=== PATIENT | female | born 2000 | race Caucasian/White ===

== ENCOUNTER 2020-11-17 09:44 | Day surgery (SDC) | payer OTHER, SELFPAY ==
[2020-11-17] VITALS (8 sets, daily range): BP systolic 112–138; BP diastolic 73–90; PULSE 64–115; RESP 16–18; TEMP 35.8–37.3; O2SAT 97–115; BMI 23.0
--- NOTE | ~2020-11-17 | US_ITS ---
EXAMINATION: US RETROPERITONEAL COMPLETE (RENAL) CLINICAL INFORMATION: Flank pain. Evaluate for stone.. COMPARISON: None TECHNIQUE: Real-time imaging of the kidneys and bladder. FINDINGS: RIGHT KIDNEY: 10.5 x 5.3 x 5 cm (SAG x AP x TRV). The kidney is normal in size, contour, and echogenicity. Renal cortical thickness is normal. There is moderate right hydronephrosis. The visualized right proximal ureter is dilated measuring up to 1.3 cm. There is a 6 mm echogenic density in the lower pole probably representing a stone. No renal mass or perinephric collection is seen. LEFT KIDNEY: 11 x 5 x 5 cm (SAG x AP x TRV). The kidney is normal in size, contour, and echogenicity. Renal cortical thickness is normal. There is a 3 mm echogenic density in the lower pole probably representing a stone. No focal parenchymal lesions. No hydronephrosis. BLADDER: Bladder is not optimally distended and not well evaluated. Bladder volume is 9 mL. US/US retroperitoneal comp IMPRESSION: Moderate right hydronephrosis and dilatation of the visualized right proximal ureter. Question 6 mm right lower pole renal stone and smaller 3 mm left lower pole renal stone. Bladder not well evaluated.
--- NOTE | ~2020-11-17 | FL_ITS ---
EXAMINATION: XR FLUOROSCOPY WITH IMAGES CLINICAL INFORMATION: Right urinary tract calculi. COMPARISON: CT abdomen and pelvis 11/17/2020 TECHNIQUE: Fluoroscopy performed by Dr. Abdiaziz Dennis. Fluoroscopy time: 0.4 minutes DAP: 3.4 Gycm2 Images: 1 FINDINGS: There is a left ureteral stent with proximal end overlying the mid renal fossa. FL/FL guidance in OR IMPRESSION: Fluoroscopy for urologic procedure.
--- NOTE | ~2020-11-17 | CT_ITS ---
EXAMINATION: CT ABDOMEN AND PELVIS WITHOUT CONTRAST CLINICAL INFORMATION: Right flank pain. Evaluate for ureteral stone. COMPARISON: Renal and bladder ultrasound from earlier the same day TECHNIQUE: Multidetector volumetric imaging was performed from the superior aspect of the liver through the pubic symphysis. Sagittal and coronal reformatted images were obtained on the technologist's workstation. This CT examination was performed using dose optimization techniques as appropriate, variously including the following: *Automated exposure control *Adjustment of mA and/or kV according to patient size (this includes techniques or standardized protocols for targeted exams where dose is matched to indication/reason for exam; i.e. extremities or head) *Use of iterative reconstruction technique DLP: 385 mGy-cm FINDINGS: LUNG BASES: There is a 2 mm peripheral or subpleural left lower lobe nodule. The lung bases are otherwise clear.. LIVER, GALLBLADDER, AND BILIARY TREE: The liver is normal in size, shape, and attenuation. No focal hepatic lesion or biliary ductal dilatation is present. The gallbladder is unremarkable with no evidence of radiopaque gallstones, gallbladder wall thickening, or obvious pericholecystic inflammatory changes. PANCREAS: Unremarkable. SPLEEN: Unremarkable. ADRENAL GLANDS: Unremarkable. KIDNEYS AND URETERS: There is right moderate hydronephrosis and right ureteral dilatation. There are 2 adjacent right distal ureteral stones at the UVJ region measuring approximately 4 x 6 mm. There may be a small stone in the lower pole of the right kidney measuring 2 x 4 mm. There is a 2 x 3 cm peripelvic cyst in the lower pole of the left kidney. There is a no definite left renal stone seen. There is no left hydronephrosis BLADDER: Unremarkable. GASTROINTESTINAL TRACT: There is question of mild bowel wall thickening of the distal right colon/hepatic flexure, transverse colon and left colon versus changes due to underdistention. Small and large bowel are otherwise unremarkable. The appendix is unremarkable. ABDOMINAL WALL: No significant hernia is appreciated. LYMPH NODES: Normal. VASCULAR: Unremarkable. PELVIC VISCERA: There is a probable 2 x 3 cm right ovarian cyst. The uterus and adnexa are otherwise unremarkable. There is a small amount of fluid in the pelvis. OSSEOUS STRUCTURES: Unremarkable. CT/CT abdomen pelvis wo con IMPRESSION: Moderate right hydronephrosis and ureteral dilatation from 2 adjacent approximately 4 x 6 mm right UVJ stones. Probable small right lower pole renal stone. Left renal peripelvic cyst. Wall thickening of the distal right colon/hepatic flexure, transverse colon and left colon. It is uncertain whether this is artifactual due to underdistention or could represent mild colitis. Clinical correlation recommended.
--- NOTE | 2020-11-17 09:40 | ED_ITS ---
HPI - Abdominal Pain General Chief Complaint: Back Pain/Injury Stated Complaint: back & abd pain Time Seen by Provider: 11/17/20 09:36 Source: patient Mode of arrival: ambulatory Limitations: no limitations History of Present Illness MD elicited complaint: abdominal pain and flank pain Onset (ago): day(s) (last night) Pain Consistency: constant Location: R flank and suprapubic Severity: moderate Quality: stabbing Migration to: no migration Exacerbating factors: nothing Relieving factors: nothing Associated symptoms: nausea, vomiting, chills and dysuria Related Data Allergies Allergy/AdvReac Type Severity Reaction Status Date / Time No Known Allergies Allergy Verified 11/17/20 09:36 Review of Systems Review of Systems Constitutional : No Weight loss, No Fever, No Chills ENT/Mouth : No sore throat, No Rhinorrhea Eyes: No Swelling, No Redness Cardiovascular : No Chest Pain, No SOB, NoEdema Respiratory : No Cough, No Sputum, No Wheezing Gastrointestinal : Positive Nausea, Positive Vomiting, no Diarrhea, positive abdominal Pain, No Hematochezia, No Melena Genitourinary : pos Dysuria, No Urinary Frequency, No Hematuria, No Urgency Musculoskeletal : No joint pain, No Myalgias, No Joint Swelling Skin : No Skin Lesions, No rash Neuro : No Weakness, No Numbness, No Dizziness, No Headache Psych : No Anxiety/Panic, No Depression Heme/Lymph: No Bruising, No Lymphadenopathy Endocrine : No Polyuria, No Polydipsia All other systems reviewed and are negative. Physical Exam Vital Signs: Vital Signs: Last Vital Signs Temp 96.4 F L 11/17/20 09:39 Pulse 64 11/17/20 09:39 Resp 18 11/17/20 11:13 BP 138/90 H 11/17/20 09:39 Pulse Ox 97 11/17/20 09:39 Body Mass Index 23.0 Appearance: Alert. Oriented X3. No acute distress. Eyes: Pupils equal, round and reactive to light. ENT: Pharynx normal. Neck: Normal inspection. Neck supple. CVS: Normal heart rate and rhythm. Pulses normal. Respiratory: No respiratory distress. Breath sounds normal. Abdomen: Soft and mild suprapubic ttp no rebound or guarding Back: R sided mild CVA ttp Skin: Skin warm and dry. Normal skin color. Normal skin turgor. Extremities: No lower extremity edema. No calf ttp Neuro: Oriented X 3. No motor deficit. No sensory deficit. Course Course Course Narrative: discussed with Dr. Dennis he will evaluate and perform procedure today MDM - Abdominal Pain MDM Narrative Medical decision making narrative: 20 yo female with flank pain n/v chills and dysuria. Will obtain labs, UA, US to evaluate for stone - possible renal colic vs UTI vs pyelonephritis, dispo per results and findings. IVF and toradol for pain ordered Lab Data Result diagrams: 11/17/20 09:54 11/17/20 09:54 Labs: Lab Results 11/17/20 11/17/20 11/17/20 Range/Units 09:54 09:54 09:54 WBC 7.2 (4.8-10.8) X10*3/uL RBC 4.77 (4.20-5.50) X10*6/uL Hgb 13.2 (12.0-16.0) g/dl Hct 40.3 (37-47) % MCV 84.5 (80-98) fL MCH 27.7 (27.0-33.0) pg MCHC 32.8 (31.0-35.0) g/dl RDW 12.8 (11.0-16.0) % Plt Count 244 (160-400) X10*3/uL MPV 10.5 (9.4-12.3) fL Immature Gran % (Auto) 0.3 (0.0-0.4) % Neut % (Auto) 71.8 (45-73) % Lymph % (Auto) 18.0 L (20-40) % [place] % (Auto) 7.4 (2-11) % Eos % (Auto) 1.8 (0-4) % Baso % (Auto) 0.7 (0-2) % Lymph # (Auto) 1.3 (1.2-4.9) X10*3/uL [place] # (Auto) 0.5 (0.1-1.2) X10*3/uL Eos # (Auto) 0.1 (0.0-0.4) X10*3/uL Baso # (Auto) 0.1 (0.0-0.2) X10*3/uL Abs Immat Gran (auto) 0.02 (0.00-0.03) X10*3/uL Absolute Neuts (auto) 5.1 (2.0-8.3) X10*3/uL Absolute Nucleated RBC 0.000 (0.0-0.012) X10*3/uL Nucleated RBC % (auto) 0.0 (0.0-0.2) /100WBC Sodium 136 (135-145) mmol/L Potassium 4.0 (3.3-5.1) mmol/L Chloride 105 (96-108) mmol/L Carbon Dioxide 22 (22-29) mmol/L Anion Gap 13 (12-20) BUN 15 (9-16) mg/dL Creatinine 0.82 (0.5-1.4) mg/dL Estim Creat Clear Calc 89.0 Estimated GFR > 60 Random Glucose 95 (60-115) mg/dL Lactic Acid (0.5-2.0) mmol/L Calcium 9.7 (8.4-10.2) mg/dL Magnesium 2.0 (1.6-2.6) mg/dL Total Bilirubin 1.0 (0.0-1.0) mg/dL Direct Bilirubin 0.3 (0.0-0.5) mg/dL AST 18 (5-31) U/L ALT 10 (0-31) U/L Alkaline Phosphatase 53 (39-117) U/L Total Protein 7.5 (6.5-8.0) g/dL Albumin 4.6 (3.5-5.0) g/dL Lipase 26 (8-78) U/L Urine Color Urine Appearance Urine pH (5.0-8.0) Ur Specific [place] (1.005-1.025) Urine Protein (NEG-TRACE) MG/DL Urine Glucose (UA) (NEG) MG/DL Urine Ketones (NEG) MG/DL Urine Blood (NEG) Urine Nitrite (NEG) Ur Leukocyte Esterase (NEG) Urine RBC (0) /HPF Urine WBC (0-4) /HPF Ur Squamous Epith Cells /LPF Ur Renal Epithelial Cell /LPF Urine Bacteria /LPF Urine Test (NEGATIVE) COVID-19 ([facility]) (Negative) COVID-19 Clin Com 11/17/20 11/17/20 11/17/20 Range/Units 09:54 09:55 10:14 WBC (4.8-10.8) X10*3/uL RBC (4.20-5.50) X10*6/uL Hgb (12.0-16.0) g/dl Hct (37-47) % MCV (80-98) fL MCH (27.0-33.0) pg MCHC (31.0-35.0) g/dl RDW (11.0-16.0) % Plt Count (160-400) X10*3/uL MPV (9.4-12.3) fL Immature Gran % (Auto) (0.0-0.4) % Neut % (Auto) (45-73) % Lymph % (Auto) (20-40) % [place] % (Auto) (2-11) % Eos % (Auto) (0-4) % Baso % (Auto) (0-2) % Lymph # (Auto) (1.2-4.9) X10*3/uL [place] # (Auto) (0.1-1.2) X10*3/uL Eos # (Auto) (0.0-0.4) X10*3/uL Baso # (Auto) (0.0-0.2) X10*3/uL Abs Immat Gran (auto) (0.00-0.03) X10*3/uL Absolute Neuts (auto) (2.0-8.3) X10*3/uL Absolute Nucleated RBC (0.0-0.012) X10*3/uL Nucleated RBC % (auto) (0.0-0.2) /100WBC Sodium (135-145) mmol/L Potassium (3.3-5.1) mmol/L Chloride (96-108) mmol/L Carbon Dioxide (22-29) mmol/L Anion Gap (12-20) BUN (9-16) mg/dL Creatinine (0.5-1.4) mg/dL Estim Creat Clear Calc Estimated GFR Random Glucose (60-115) mg/dL Lactic Acid 1.1 (0.5-2.0) mmol/L Calcium (8.4-10.2) mg/dL Magnesium (1.6-2.6) mg/dL Total Bilirubin (0.0-1.0) mg/dL Direct Bilirubin (0.0-0.5) mg/dL AST (5-31) U/L ALT (0-31) U/L Alkaline Phosphatase (39-117) U/L Total Protein (6.5-8.0) g/dL Albumin (3.5-5.0) g/dL Lipase (8-78) U/L Urine Color YELLOW Urine Appearance HAZY Urine pH 7.0 (5.0-8.0) Ur Specific [place] 1.015 (1.005-1.025) Urine Protein NEG (NEG-TRACE) MG/DL Urine Glucose (UA) NEG (NEG) MG/DL Urine Ketones NEG (NEG) MG/DL Urine Blood 1+ H (NEG) Urine Nitrite NEG (NEG) Ur Leukocyte Esterase NEG (NEG) Urine RBC 10-14 H (0) /HPF Urine WBC 0-2 (0-4) /HPF Ur Squamous Epith Cells 3+ /LPF Ur Renal Epithelial Cell TRACE /LPF Urine Bacteria TRACE /LPF Urine Test (NEGATIVE) COVID-19 ([facility]) Negative (Negative) COVID-19 Clin Com See Note 11/17/20 Range/Units 10:14 WBC (4.8-10.8) X10*3/uL RBC (4.20-5.50) X10*6/uL Hgb (12.0-16.0) g/dl Hct (37-47) % MCV (80-98) fL MCH (27.0-33.0) pg MCHC (31.0-35.0) g/dl RDW (11.0-16.0) % Plt Count (160-400) X10*3/uL MPV (9.4-12.3) fL Immature Gran % (Auto) (0.0-0.4) % Neut % (Auto) (45-73) % Lymph % (Auto) (20-40) % [place] % (Auto) (2-11) % Eos % (Auto) (0-4) % Baso % (Auto) (0-2) % Lymph # (Auto) (1.2-4.9) X10*3/uL [place] # (Auto) (0.1-1.2) X10*3/uL Eos # (Auto) (0.0-0.4) X10*3/uL Baso # (Auto) (0.0-0.2) X10*3/uL Abs Immat Gran (auto) (0.00-0.03) X10*3/uL Absolute Neuts (auto) (2.0-8.3) X10*3/uL Absolute Nucleated RBC (0.0-0.012) X10*3/uL Nucleated RBC % (auto) (0.0-0.2) /100WBC Sodium (135-145) mmol/L Potassium (3.3-5.1) mmol/L Chloride (96-108) mmol/L Carbon Dioxide (22-29) mmol/L Anion Gap (12-20) BUN (9-16) mg/dL Creatinine (0.5-1.4) mg/dL Estim Creat Clear Calc Estimated GFR Random Glucose (60-115) mg/dL Lactic Acid (0.5-2.0) mmol/L Calcium (8.4-10.2) mg/dL Magnesium (1.6-2.6) mg/dL Total Bilirubin (0.0-1.0) mg/dL Direct Bilirubin (0.0-0.5) mg/dL AST (5-31) U/L ALT (0-31) U/L Alkaline Phosphatase (39-117) U/L Total Protein (6.5-8.0) g/dL Albumin (3.5-5.0) g/dL Lipase (8-78) U/L Urine Color Urine Appearance Urine pH (5.0-8.0) Ur Specific [place] (1.005-1.025) Urine Protein (NEG-TRACE) MG/DL Urine Glucose (UA) (NEG) MG/DL Urine Ketones (NEG) MG/DL Urine Blood (NEG) Urine Nitrite (NEG) Ur Leukocyte Esterase (NEG) Urine RBC (0) /HPF Urine WBC (0-4) /HPF Ur Squamous Epith Cells /LPF Ur Renal Epithelial Cell /LPF Urine Bacteria /LPF Urine Test NEGATIVE (NEGATIVE) COVID-19 ([facility]) (Negative) COVID-19 Clin Com Discharge Plan Discharge Clinical Impression: Ureterolithiasis, Vomiting Patient Disposition: Admitted As Inpatient [facility] Past Medical History Medical History (Updated 11/17/20 @ 12:08 by Clarita Hernandez DO) No active medical problems Surgical History (Updated 11/17/20 @ 09:43 by Clarita Hernandez DO) No history of previous surgery Social History Social History (Updated 11/17/20 @ 09:43 by Clarita Hernandez DO) Patient Tobacco Use Status: Never used Tobacco Use of substances other than those prescribed or required for medical reasons: No Advance Directives: No Advance Directives Information Provided: No Patient : No
[2020-11-17 10:02] LABS: MANUAL DIFF FLAG NO
[2020-11-17] MEDS: ondansetron HCL 4 MG/2 ML VIAL IVPUSH (10:02)
[2020-11-17] MEDS: Ketorolac Tromethamine 15 MG/ML VIAL IVPUSH (10:02)
[2020-11-17] MEDS: 0.9 % Sodium Chloride 1,000 ML 999 ML IVCONT (10:02)
[2020-11-17 10:05] LABS: Basophils Absolute Auto 0.1 X10*3/uL (0.0-0.2); Basophils Percent Auto 0.7 % (0-2); Eosinophils Absolute Auto 0.1 X10*3/uL (0.0-0.4); Eosinophils Percent Auto 1.8 % (0-4); Hematocrit 40.3 % (37-47); Hemoglobin 13.2 g/dl (12.0-16.0); Imm Gran Abs Auto 0.02 X10*3/uL (0.00-0.03); Imm Gran Pct Auto 0.3 % (0.0-0.4); Lymphocytes Absolute Auto 1.3 X10*3/uL (1.2-4.9); Mean Corpuscular HGB Conc 32.8 g/dl (31.0-35.0); Mean Corpuscular Hemoglobin 27.7 pg (27.0-33.0); Mean Corpuscular Volume 84.5 fL (80-98); Mean Platelet Volume 10.5 fL (9.4-12.3); Monocytes Absolute Auto 0.5 X10*3/uL (0.1-1.2); Monocytes Percent Auto 7.4 % (2-11); Neutrophils Absolute Auto 5.1 X10*3/uL (2.0-8.3); Neutrophils Percent Auto 71.8 % (45-73); Platelet Count 244 X10*3/uL (160-400); Red Blood Count 4.77 X10*6/uL (4.20-5.50); Red Cell Distribution Width 12.8 % (11.0-16.0); White Blood Count 7.2 X10*3/uL (4.8-10.8)
[2020-11-17 10:14] LABS: Lactic Acid 1.1 mmol/L (0.5-2.0)
[2020-11-17 10:18] LABS: COVID-19 Test Negative (Negative)
[2020-11-17 10:28] LABS: Anion Gap 13 (12-20); Blood Urea Nitrogen 15 mg/dL (9-16); Calcium 9.7 mg/dL (8.4-10.2); Carbon Dioxide 22 mmol/L (22-29); Chloride 105 mmol/L (96-108); Estimated Glomerular Filt Rate > 60; Glucose Random 95 mg/dL (60-115); Sodium 136 mmol/L (135-145)
[2020-11-17 10:29] LABS: Alanine Aminotransferase 10 U/L (0-31); Albumin Level 4.6 g/dL (3.5-5.0); Alkaline Phosphatase 53 U/L (39-117); Aspartate Amino Transferase 18 U/L (5-31); Bilirubin Direct 0.3 mg/dL (0.0-0.5); Lipase 26 U/L (8-78); Total Protein 7.5 g/dL (6.5-8.0)
[2020-11-17 10:32] LABS: Glucose Urine UA NEG (NEG); Leukocyte Esterase Urine NEG (NEG); Nitrite Urine NEG (NEG); Specific Gravity - Urine 1.015 (1.005-1.025); UACC Culture Trigger NO; Urine Blood 1+ (NEG); Urine Ketones NEG (NEG); Urine Protein NEG (NEG-TRACE)
[2020-11-17 10:33] LABS: UPreg QC Valid YES; Urine Pregnancy NEGATIVE (NEGATIVE)
[2020-11-17 10:39] LABS: Appearance Urine HAZY; Color Urine YELLOW
[2020-11-17 10:49] LABS: Squamous Epithelial Cell Urine 3+ /LPF; WBC Urine 0-2 /HPF (0-4)
[2020-11-17 10:50] LABS: Bacteria Urine TRACE /LPF; Renal Epithelial Cells Urine TRACE /LPF
[2020-11-17] MEDS: Tamsulosin HCL 0.4 MG CAPSULE PO (11:59)
[2020-11-17] MEDS: methylPREDNISolone Sod Succ 125 MG/2 ML VIAL 60 MG IVPUSH (11:59)
--- NOTE | 2020-11-17 13:20 | PC.NURSE ---
report given to SSS - likely not going over until around 1600
--- NOTE | 2020-11-17 17:21 | P.CNUR_ITS ---
History of Present Illness Consult details Consult date: 11/17/20 Narrative: Fani is a very pleasant female. 48 hours of right-sided flank pain worsening this morning Associated with nausea and vomiting No prior history of kidney stones or family history of stones CT scan performed showing to 4 mm distal right ureteric stones with hydroureteronephrosis Creatinine 0.82, WBC 7.2 Plan for cystoscopy, right retrograde, right ureteroscopy with laser lithotripsy and stone basketing Review of Systems Constitutional: Constitutional: Denies chills and Denies fever(s) Cardiovascular: Cardiovascular: Reports no additional cardiovascular complaints and Denies syncope Respiratory: Respiratory: Denies cough Gastrointestinal: Gastrointestinal: Denies abdominal pain and Denies heartburn Genitourinary: Genitourinary: Reports as per HPI and Denies change in libido Neurologic: Denies syncope Psychiatric: Psychiatric: Denies change in libido Endocrine: Endocrine: Denies change in libido [facility] Past Medical History Medical History (Updated 11/17/20 @ 12:08 by Clarita Hernandez DO) No active medical problems Surgical History Surgical History (Updated 11/17/20 @ 09:43 by Clarita Hernandez DO) No history of previous surgery Social History Social History (Updated 11/17/20 @ 09:43 by Clarita Hernandez DO) Are you a primary health care consultant to a significant other at home: No Do you presently have visiting nurse or other home services: No Patient Tobacco Use Status: Former Tobacco user Quit Date: 2018 Smoked in Last 30 Days: No Use of substances other than those prescribed or required for medical reasons: No Substance Use Frequency: Daily Have you been hit, kicked, punched, or otherwise hurt by someone within the past year? If so, by whom?: No Are you DNR?: No Advance Directives: No Advance Directives Information Provided: No Recently lost weight without trying: No Eating poorly because of decreased appetite: No Nutrition Risks: No Nutritional Risk Patient : No FDLMP: 10/06/20 : No Poor oral hygiene: No Meds Allergies Allergy/AdvReac Type Severity Reaction Status Date / Time No Known Allergies Allergy Verified 11/17/20 09:36 Physical Exam Vital Signs: Vital Signs: Last Vital Signs Temp 99.2 F 11/17/20 16:42 Pulse 98 11/17/20 16:42 Resp 18 11/17/20 16:42 BP 128/78 11/17/20 16:42 Pulse Ox 100 11/17/20 16:42 Body Mass Index 23.0 Const: General: cooperative, healthy appearing, comfortable and no acute distress Orientation/consciousness: patient oriented x3 HENMT: Face and sinus: Yes normal facial exam Mouth: moist mucous membranes Neck: Neck: Yes normal visual inspection, Yes full ROM and Yes trachea midline Chest: Chest palpation & inspection: normal inspection of the chest Resp: Effort & Inspection: normal respiratory effort, able to speak in complete sentences and no respiratory distress GI: Inspection: Yes normal to inspection Back/Spine/Pelvis: Cervical Spine: normal cervical lordosis Thoracic/Lumbar Spine: thoracic and lumbar spine normal to inspection Skin: General skin exam: no rashes or lesions noted Neuro: General: patient oriented x3, gait normal, tone normal and moves all extremities Extrem: General: Yes normal to inspection and Yes capillary refill normal Results Labs Result diagrams: 11/17/20 09:54 11/17/20 09:54 Labs: Abnormal lab results 11/17/20 11/17/20 Range/Units 09:54 10:14 Lymph % (Auto) 18.0 L (20-40) % Urine Blood 1+ H (NEG) Urine RBC 10-14 H (0) /HPF Short CBC 11/17/20 Range/Units 09:54 WBC 7.2 (4.8-10.8) X10*3/uL Hgb 13.2 (12.0-16.0) g/dl Hct 40.3 (37-47) % Plt Count 244 (160-400) X10*3/uL BMP 11/17/20 09:54 Sodium 136 Potassium 4.0 Chloride 105 Carbon Dioxide 22 BUN 15 Creatinine 0.82 Calcium 9.7 Liver Function 11/17/20 Range/Units 09:54 Total Bilirubin 1.0 (0.0-1.0) mg/dL Direct Bilirubin 0.3 (0.0-0.5) mg/dL AST 18 (5-31) U/L ALT 10 (0-31) U/L Alkaline Phosphatase 53 (39-117) U/L Albumin 4.6 (3.5-5.0) g/dL Urine 11/17/20 11/17/20 Range/Units 10:14 10:14 Urine Color YELLOW Urine Appearance HAZY Urine pH 7.0 (5.0-8.0) Ur Specific [place] 1.015 (1.005-1.025) Urine Protein NEG (NEG-TRACE) MG/DL Urine Glucose (UA) NEG (NEG) MG/DL Urine Test NEGATIVE (NEGATIVE) All other labs normal. Assessment and Plan (1) Ureterolithiasis: Status: Acute (2) Vomiting: Qualifiers: Nausea presence: with nausea Vomiting Intractability: non-intractable Vomiting type: unspecified Qualified Code(s): R11.2 - Nausea with vomiting, unspecified Status: Acute Ureteroscopy We discussed the nature of the decision and reasonable alternatives for performing the above surgery. Interventions include chemical dissolution, ESWL, ureteroscopy with laser lithotripsy and stent placement, PCNL. Options such as medical therapy were discussed. The relative uncertainties and benefits related to each alternate procedure were adequately discussed. General surgical risks including, but not limited to, pain, bleeding, infection, myocardial infarction, pulmonary embolus, deep vein thrombosis and cerebrovascular accident which may result in further hospitalization were discussed. Full disclosure of the procedure as well as all major risks, benefits and complications were discussed including but not limited to damage to the urethra, bladder and kidney infection, damage to the ureter, stent migration or malposition, scarring to the renal pelvis, remnant stone fragments, subsequent stone passage with need for secondary procedures. The overall secondary procedure rate is approximately 10-15%. The success rate of the procedure was discussed. Success of the procedure in the short-term does not necessarily guarantee that long-term success will be maintained. Suitable follow up will need to be maintained. The patient showed understanding of discussion and wishes to proceed with - cystoscopy, retrograde, ureteroscopy, possible lithotripsy/stone basketing and stent on the right side Procedures Date of Service Date of Service: 11/17/20
--- NOTE | 2020-11-17 17:42 | HO.ANESPROP2 ---
[facility] Active Problems Active Problems: All Active Problems (Updated 11/17/20 @ 12:08 by Clarita Hernandez DO) Ureterolithiasis (Acute) Vomiting (Acute) Past Medical History Medical History (Updated 11/17/20 @ 12:08 by Clarita Hernandez DO) No active medical problems Functional capacity: independent ambulation Patient : No Family History Family history of problems with anesthesia: No Surgical History Surgical History (Updated 11/17/20 @ 09:43 by Clarita Hernandez DO) No history of previous surgery History of Problems with Anesthesia: No Social History Social History (Updated 11/17/20 @ 09:43 by Clarita Hernandez DO) Are you a primary inpatient care manager rn to a significant other at home: No Do you presently have visiting nurse or other home services: No Patient Tobacco Use Status: Former Tobacco user Quit Date: 2018 Smoked in Last 30 Days: No Use of substances other than those prescribed or required for medical reasons: No Substance Use Frequency: Daily Have you been hit, kicked, punched, or otherwise hurt by someone within the past year? If so, by whom?: No Are you DNR?: No Advance Directives: No Advance Directives Information Provided: No Recently lost weight without trying: No Eating poorly because of decreased appetite: No Nutrition Risks: No Nutritional Risk Patient : No FDLMP: 10/06/20 : No Poor oral hygiene: No Meds Allergies Allergy/AdvReac Type Severity Reaction Status Date / Time No Known Allergies Allergy Verified 11/17/20 09:36 Exam Exam Date and Time: November 17, 2020 1742 Height,Weight and Vital Signs: Height 5 ft 3 in Weight 58.967 kg Last Vital Signs Temp 99.2 F 11/17/20 16:42 Pulse 98 11/17/20 16:42 Resp 18 11/17/20 16:42 BP 128/78 11/17/20 16:42 Pulse Ox 100 11/17/20 16:42 Pertinent Lab Results Pertinent Lab Results: Laboratory Tests 11/17/20 11/17/20 11/17/20 09:54 09:54 09:54 WBC 7.2 RBC 4.77 Hgb 13.2 Hct 40.3 MCV 84.5 MCH 27.7 MCHC 32.8 RDW 12.8 Plt Count 244 MPV 10.5 Immature Gran % (Auto) 0.3 Neut % (Auto) 71.8 Lymph % (Auto) 18.0 L [place] % (Auto) 7.4 Eos % (Auto) 1.8 Baso % (Auto) 0.7 Lymph # (Auto) 1.3 [place] # (Auto) 0.5 Eos # (Auto) 0.1 Baso # (Auto) 0.1 Abs Immat Gran (auto) 0.02 Absolute Neuts (auto) 5.1 Absolute Nucleated RBC 0.000 Nucleated RBC % (auto) 0.0 Sodium 136 Potassium 4.0 Chloride 105 Carbon Dioxide 22 Anion Gap 13 BUN 15 Creatinine 0.82 Estim Creat Clear Calc 89.0 Estimated GFR > 60 Random Glucose 95 Lactic Acid Calcium 9.7 Magnesium 2.0 Total Bilirubin 1.0 Direct Bilirubin 0.3 AST 18 ALT 10 Alkaline Phosphatase 53 Total Protein 7.5 Albumin 4.6 Lipase 26 Urine Color Urine Appearance Urine pH Ur Specific [place] Urine Protein Urine Glucose (UA) Urine Ketones Urine Blood Urine Nitrite Ur Leukocyte Esterase Urine RBC Urine WBC Ur Squamous Epith Cells Ur Renal Epithelial Cell Urine Bacteria Urine Test COVID-19 ([facility]) COVID-[place] 11/17/20 11/17/20 11/17/20 09:54 09:55 10:14 WBC RBC Hgb Hct MCV MCH MCHC RDW Plt Count MPV Immature Gran % (Auto) Neut % (Auto) Lymph % (Auto) [place] % (Auto) Eos % (Auto) Baso % (Auto) Lymph # (Auto) [place] # (Auto) Eos # (Auto) Baso # (Auto) Abs Immat Gran (auto) Absolute Neuts (auto) Absolute Nucleated RBC Nucleated RBC % (auto) Sodium Potassium Chloride Carbon Dioxide Anion Gap BUN Creatinine Estim Creat Clear Calc Estimated GFR Random Glucose Lactic Acid 1.1 Calcium Magnesium Total Bilirubin Direct Bilirubin AST ALT Alkaline Phosphatase Total Protein Albumin Lipase Urine Color YELLOW Urine Appearance HAZY Urine pH 7.0 Ur Specific [place] 1.015 Urine Protein NEG Urine Glucose (UA) NEG Urine Ketones NEG Urine Blood 1+ H Urine Nitrite NEG Ur Leukocyte Esterase NEG Urine RBC 10-14 H Urine WBC 0-2 Ur Squamous Epith Cells 3+ Ur Renal Epithelial Cell TRACE Urine Bacteria TRACE Urine Test COVID-19 ([facility]) Negative COVID-19 [employer] Com See Note 11/17/20 10:14 WBC RBC Hgb Hct MCV MCH MCHC RDW Plt Count MPV Immature Gran % (Auto) Neut % (Auto) Lymph % (Auto) [place] % (Auto) Eos % (Auto) Baso % (Auto) Lymph # (Auto) [place] # (Auto) Eos # (Auto) Baso # (Auto) Abs Immat Gran (auto) Absolute Neuts (auto) Absolute Nucleated RBC Nucleated RBC % (auto) Sodium Potassium Chloride Carbon Dioxide Anion Gap BUN Creatinine Estim Creat Clear Calc Estimated GFR Random Glucose Lactic Acid Calcium Magnesium Total Bilirubin Direct Bilirubin AST ALT Alkaline Phosphatase Total Protein Albumin Lipase Urine Color Urine Appearance Urine pH Ur Specific [place] Urine Protein Urine Glucose (UA) Urine Ketones Urine Blood Urine Nitrite Ur Leukocyte Esterase Urine RBC Urine WBC Ur Squamous Epith Cells Ur Renal Epithelial Cell Urine Bacteria Urine Test NEGATIVE COVID-19 ([facility]) COVID-19 Clin Com Airway Mallampati Class: I TM Dist: >3cm Neck ROM: Full Loose/Missing/Broken Teeth: No Heart: RRR Lungs: CTA Assessment and Plan Assessment Anesthesia Assessment: Anesthesia Plan Discussed and Chart Reviewed Final Anesthetic Review Family History of Problems with Anesthesia: No History of Problems with Anesthesia: No ASA Class: I Final Preanesthetic Review: No Changes in Pt Med Stat, Meds/Allgs Chart Reviewed, Consent Obtained/Reviewed and Anes Risks/Benef Reviewed Patient Risk: Low Procedure Risk: Low Anesthetic Plan Anesthetic Plan: GA Disposition: Standard PACU
[2020-11-17] MEDS: Acetaminophen 325 MG TABLET 650 MG PO (18:03)
[2020-11-17] MEDS: levoFLOXacin 500 MG TABLET PO (18:03)
--- NOTE | 2020-11-17 18:12 | MHC.SHP ---
Pre-Procedural Eval Section A Date of Service: 11/17/20 Section B Chief Complaint: back & abd pain Details of Present Illness: right distyal ureteric stones Relevant Social History: None Present Medications: see Short Stay Collaborative assessment Medical History: No relevant PMH History of Previous Operations: No relevant previous surgery Allergies: Allergies Allergy/AdvReac Type Severity Reaction Status Date / Time No Known Allergies Allergy Verified 11/17/20 09:36 Review of Systems Sugical H&P ROS: Negative: Constitution, Cardiovascular, Respiratory, Neurological, Psychiatric, Hem-Onc, Allergic/Immunologic, Gastrointestinal, Genitourinary, Musculoskeletal, Integumentary, Endocrine and Eyes/Ears/Nose/Throat Exam Surgical H&P Exam: Normal: HEENT, Normal: Heart, Normal: Lungs, Normal: Extremities, Normal: Abdomen, Normal: Skin and Normal: Neurological Plan Diagnosis/Plan: Unchanged (right retrograde, USR, laser and stent) I have reviewed the history and physical and performed a pertinent physical examination on my patient. No changes have occurred unless specified.
--- NOTE | 2020-11-17 19:00 | P.OP_ITS ---
Operative Note Operative Note Date of Service: 11/17/20 Narrative: PreOperative Diagnosis: Distal right ureteric stones Post Operative Diagnosis: Distal right ureteric stones Procedure: - rightcystoscopy, retrograde - dilatation of ureteric orifice under fluoroscopy - rightureteroscopy, stone basketing - right stent placement Surgeon: Dr Abdaiziz Dennis Anesthesia: General Indications for procedure: Fani is a pleasant female who has distal right ureteric stones on CT scan admitted through the ER for nausea and vomiting with pain.-in for right ureteroscopy laser lithotripsy in stone removal. Procedure: After informed consent was verified patient was brought to the operating placed in supine position. Anesthesia was administered per protocol. Patient was placed in modified dorsal lithotomy position and prepped and draped in a sterile fashion. Safety pause time-out and side of surgery confirmed. Antibiotics confirmed. Twenty-two Citizen [place] cystoscope inserted per urethra. Right ureteric orifice was inflamed. Retrograde examination performed showing filling defect at UVJ. Sensor guidewire placed through small ureteric orifice. Cystoscope removed. Ureteric orifice dilated with a Narendra dilator under fluoroscopy. Rigid ureteral scope advanced alongside the wire and stone encountered in distal ureter. Stone was able to be grasped using a short catch basket. Stone was removed and will be sent for stone analysis. Six [place] by 22 cm double-J ureteric stent was placed under fluoroscopy with good positioning. Bladder was emptied. She tolerated the procedure well was extubated in the operating room and transferred in stable condition to the recovery area Pathology: Stones Drains: 6 Citizen [place] by 22 cm double-J stent
[2020-11-17] MEDS: Phenazopyridine HCL 100 MG TABLET PO (19:11)
[2020-11-25 01:17] LABS: Stone Source RIGHT URETERAL STONE
== END 2020-11-17 16:40 | disposition home or self-care (01) ==
LOC: HO.ED 19:11 → HO.SSS 03-16 15:53
PROVIDERS: Urology; Visit Provider Emergency Medicine
PROC: 0TJ98ZZ Inspection of Ureter, Via Natural or Artificial Opening Endoscopic (ICD-10-PCS; CPT 52351; principal; 2020-11-17 18:00)
DX: N20.1 Calculus of ureter (principal); Z20.822 Contact with and (suspected) exposure to COVID-19; Z79.899 Other long term (current) drug therapy; Z87.891 Personal history of nicotine dependence
CPT/HCPCS: 52352; 52332; 36415; 74176; 76770; 80048; 80076; 81001; 81025; 82365; 83605; 83690; 83735; 85025; 87635; 88300; 99285; C1769; C2617; J1100; J1885; J2405; J2930; J3010; Q9967

== ENCOUNTER → 2020-11-25 14:04 | Outpatient (BNVA) | payer OTHER, SELFPAY | PROVIDERS: Visit Provider Urology | DX: N20.1 Calculus of ureter (principal) | CPT/HCPCS: 52310; 99212 ==

== ENCOUNTER 2020-12-23 12:57 | Outpatient (REF) | payer OTHER, SELFPAY ==
--- NOTE | ~2020-12-23 | US_ITS ---
EXAMINATION: US RETROPERITONEAL LIMITED (RENAL ONLY) CLINICAL INFORMATION: Calculus of kidney. COMPARISON: CT abdomen pelvis 11/17/2020. TECHNIQUE: Real-time imaging of the kidneys. FINDINGS: RIGHT KIDNEY: 8.9 x 5.9 x 4.8 cm (SAG x AP x TRV). The kidney is normal in size, contour, and echogenicity. Renal cortical thickness is normal. No calculi or focal parenchymal lesions. No hydronephrosis. LEFT KIDNEY: 10.7 x 5.5 x 4.8 cm (SAG x AP x TRV). The kidney is normal in size, contour, and echogenicity. Renal cortical thickness is normal. No calculi or focal parenchymal lesions. No hydronephrosis. US/US renal BI IMPRESSION: Unremarkable examination.
== END 2020-12-23 12:58 | disposition home or self-care (01) ==
LOC: HO.US 12:57
PROVIDERS: Visit Provider Urology
DX: N20.0 Calculus of kidney (principal); N20.1 Calculus of ureter
CPT/HCPCS: 76775

== ENCOUNTER 2021-02-12 10:06 | Outpatient (REF) | payer OTHER, SELFPAY ==
[2021-02-12 10:30] LABS: COVID-19 Test Positive (Negative)
== END 2021-02-12 10:07 | disposition home or self-care (01) ==
LOC: HO.LAB 10:06
PROVIDERS: Visit Provider Internal Medicine
DX: Z20.822 Contact with and (suspected) exposure to COVID-19 (principal)
CPT/HCPCS: 36415; 87635; C9803

== ENCOUNTER 2022-01-18 16:25 | Outpatient (REF) | payer OTHER, SELFPAY ==
--- NOTE | ~2022-01-18 | US_ITS ---
EXAMINATION: US RETROPERITONEAL LIMITED (RENAL ONLY) CLINICAL INFORMATION: Calculus of ureter. COMPARISON: Renal ultrasound 12/23/2020 and 11/17/2020. CT abdomen and pelvis 11/17/2020. TECHNIQUE: Real-time imaging of the kidneys. FINDINGS: RIGHT KIDNEY: 10.0 x 4.9 x 5.2 cm (SAG x AP x TRV). The kidney is normal in size, contour, and echogenicity. Renal cortical thickness is normal. No calculi or focal parenchymal lesions. No hydronephrosis. LEFT KIDNEY: 11.4 x 5.3 x 4.0 cm (SAG x AP x TRV). The kidney is normal in size, contour, and echogenicity. Renal cortical thickness is normal. No calculi or solid focal parenchymal lesions. No hydronephrosis. Hypoechoic region in the lower pole of the left kidney is consistent with a left lower pole renal parapelvic cyst. US/US renal BI IMPRESSION: No calculi or hydronephrosis..
== END 2022-01-18 16:26 | disposition home or self-care (01) ==
LOC: HO.US 16:25
DX: N20.1 Calculus of ureter (principal)
CPT/HCPCS: 76775

== ENCOUNTER 2023-01-20 08:18 | Outpatient (REF) | payer OTHER, SELFPAY ==
--- NOTE | ~2023-01-20 | US_ITS ---
EXAMINATION: US RETROPERITONEAL LIMITED (RENAL ONLY) CLINICAL INFORMATION: Calculus of ureter. COMPARISON: Renal ultrasound 01/18/2022 and 12/23/2020. CT abdomen and pelvis 11/17/2020. TECHNIQUE: Real-time imaging of the kidneys. FINDINGS: RIGHT KIDNEY: 9.4 x 5.3 x 5.1 cm (SAG x AP x TRV). The kidney is normal in size, contour, and echogenicity. Renal cortical thickness is normal. No calculi or focal parenchymal lesions. No hydronephrosis. LEFT KIDNEY: 10.8 x 5.3 x 5.1 cm (SAG x AP x TRV). The kidney is normal in size, contour, and echogenicity. Renal cortical thickness is normal. No renal calculi or hydronephrosis. There is a Bosniak class II cyst at the lower pole measuring 2.4 x 1.8 x 2.0 cm which has some septations. This is a benign finding and should need no additional imaging or follow up. This has been seen on all prior studies. US/US renal BI IMPRESSION: 1. No nephrolithiasis. No hydronephrosis. 2. Benign Bosniak class II left renal cyst. No further imaging or follow up is needed.
== END 2023-01-20 08:19 | disposition home or self-care (01) ==
LOC: HO.HMGCX 08:18
PROVIDERS: Visit Provider Urology
DX: N20.1 Calculus of ureter (principal)
CPT/HCPCS: 76775